=== PATIENT | female | born 1985 | race Caucasian/White ===

== ENCOUNTER 2018-04-29 17:24 | Emergency (ER) | payer BC, OTHER ==
[2018-04-29] MEDS ORDERED: HYDROMORPHONE HCL INJ/PF 2 MG/ML AMPULE IM ONE (18:05)
[2018-04-29] MEDS ORDERED: ONDANSETRON 4 MG TAB.RAPDIS PO ONE ×2 (18:05→20:05)
--- NOTE | 2018-04-29 18:06 | ER Document Report ---
ED Hand/Wrist Injury - General Mode of Arrival: Ambulatory Information source: Patient TRAVEL OUTSIDE OF THE [place] IN LAST 30 DAYS: No <RANDI RHOADES - Last Filed: 04/29/18 19:22> <LALY ELLISON - Last Filed: 04/30/18 00:47> - General Chief Complaint: Finger Injury Stated Complaint: DOG BITE Time Seen by Provider: 04/29/18 17:56 Notes: Patient is a 32 year old female presenting to the emergency department complaining of a finger laceration onset prior to arrival. Patient states her 2 pitbulls were fighting and when she tried to seperate them, one bit her right 4th digit. She states her dogs are up to date on their vaccines. She also states she has received her tetanus shot. (RANDI RHOADES) - Related Data Allergies/Adverse Reactions: azithromycin Allergy (Verified 04/29/18 17:40) acetaminophen [From Percocet] Adverse Reaction (Verified 04/29/18 17:40) oxycodone [From Percocet] Adverse Reaction (Verified 04/29/18 17:40) Past Medical History - Social History Smoking Status: Never Smoker Chew tobacco use (# tins/day): No Frequency of alcohol use: Social Drug Abuse: None Family History: Reviewed & Not Pertinent Patient has suicidal ideation: No Patient has homicidal ideation: No Past Surgical History: Reports: Hx Orthopedic Surgery <RANDI RHOADES - Last Filed: 04/29/18 19:22> - Medical History Notes: Reports multiple autoimmune diseases including Vitiligo, Hashimotos and Lupus. (RANDI RHOADES) Review of Systems - Review of Systems Constitutional: No symptoms reported EENT: No symptoms reported Cardiovascular: No symptoms reported Respiratory: No symptoms reported Gastrointestinal: No symptoms reported Genitourinary: No symptoms reported Female Genitourinary: No symptoms reported Musculoskeletal: See HPI Skin: See HPI Hematologic/Lymphatic: No symptoms reported Neurological/Psychological: No symptoms reported -: Yes All other systems reviewed and negative <RANDI RHOADES - Last Filed: 04/29/18 19:22> Physical Exam <RANDI RHOADES - Last Filed: 04/29/18 19:22> - Vital signs Vitals: Temp Pulse Resp BP Pulse Ox 97.6 F 72 16 122/74 99 04/29/18 17:31 04/29/18 17:31 04/29/18 17:31 04/29/18 17:31 04/29/18 17:31 - Notes Notes: GENERAL: Alert, interacts well. No acute distress. HEAD: Normocephalic, atraumatic. EYES: Pupils equal, round, and reactive to light. Extraocular movements intact. ENT: Oral mucosa moist, tongue midline. NECK: Full range of motion. Supple. Trachea midline. LUNGS: No respiratory distress. EXTREMITIES: Moves all 4 extremities spontaneously. Traumatic laceration to the medial aspect of the 4th digit of the right hand, through DIP joint, skin is still attached laterally. Tip of 4th digit is warm, sensation are decreased. Unable to flex tip of 4th digit.. NEUROLOGICAL: Alert and oriented x3. Normal speech. PSYCH: Normal affect, normal mood. SKIN: Warm, dry. (RANDI RHOADES) Course <LALY ELLISON - Last Filed: 04/30/18 00:47> - Re-evaluation Re-evalutation: 04/29/18 22:00 Finger x-ray shows comminuted minimally displaced intra-articular fracture of the base of the distal phalanx of the fourth digit of the right hand, possible nondisplaced fracture of the distal tuft of the fourth digit, asymmetric widening of the distal interphalangeal joint of the fourth digit, soft tissue defect overlying the ulnar aspect of the distal interphalangeal joint of the fourth digit. Surprisingly the patient has sensation that is intact, relatively normal capillary refill, only mildly decreased at approximately 3 seconds, I am able to visualize the entirety of the DIP joint, there is a small bony chip noted on the ulnar aspect of the wound. Patient is unable to flex or extend at the distal phalanx of the fourth digit. Discussed the case with Dr. Novak, agrees that if there is still evidence of some perfusion to the area that I should irrigate to the wound, treat with Augmentin and loosely approximate and placed in a finger splint. He is asked to see the patient Tuesday morning at 9 AM in his office. He will work her into the schedule during the day. Patient is aware that she is at high risk for infection since this is a dog bite but if we do not approximated she will lose her finger. Patient is also aware given the severity of the injury that she is still likely to lose the distal tip of her finger. Patient will return i mmediately for fever, swelling, redness or any other signs of infection. Area was irrigated with 1 L of normal saline after digital block using bupivacaine and lidocaine, cleansed with Shur-Clens and irrigated more. Approximated using 5-0 Ethilon. Placed in a finger splint. Patient's tetanus vaccine is up-to-date. (LALY ELLISON) - Vital Signs Vital signs: Temp Pulse Resp BP Pulse Ox 97.5 F 70 17 120/83 99 04/29/18 22:17 04/29/18 22:17 04/29/18 22:17 04/29/18 22:17 04/29/18 22:17 Procedures - Immobilization right 4th finger Pre-Proc Neuro Vasc Exam: Abnormal - decreased sensation to the tip of the finger. Immobilizer type: Finger splint (Static) Performed by: PCT Post-Proc Neuro Vasc Exam: Abnormal, Unchanged from pre-exam Alignment checked and good: Yes - Laceration/Wound Repair right 4th finger Wound length (cm): 2 Wound's Depth, Shape: Into muscle, Nail-avulsed, Contused tissue, Other - into joint Laceration pre-procedure: Sterile PPE donned, Sterile drapes applied, Shur-Clens applied Anesthetic type: Other - 50-50 mixture 1% lidocaine and 0.5% bupivicaine Volume Anesthetic (mLs): 3 Wound explored: Contaminated, Foreign body removed - dog hair removed Irrigated w/ Saline (mLs): 1,000 Wound Debrided: Minimal Wound Repaired With: Sutures Suture Size/Type: 5:0, Ethilon Number of Sutures: 5 Layer Closure?: No Post-procedure wound care: Sterile dressing applied, Splint applied Post-procedure NV exam normal: No - still numb Complications: No <LALY ELLISON - Last Filed: 04/30/18 00:47> - Laceration/Wound Repair right 4th finger Notes: 04/29/18 22:10 No buried sutures due to risk of infection, did not attempt to repair the partially torn tendon on the radial aspect of the wound, loosely approximated to cover the tendon but still allow drainage from potential infection. (LALY ELLISON) Discharge <RANDI RHOADES - Last Filed: 04/29/18 19:22> <LALY ELLISON - Last Filed: 04/30/18 00:47> - Discharge Clinical Impression: Open fracture dislocation of distal interphalangeal joint Dog bite of finger Qualifiers: Encounter type: initial encounter Qualified Code(s): S61.259A - Open bite of unspecified finger without damage to nail, initial encounter Phalanx, distal fracture of finger Qualifiers: Encounter type: initial encounter Finger: ring finger Fracture type: open Fracture alignment: nondisplaced Laterality: right Qualified Code(s): S62.664B - Nondisplaced fracture of distal phalanx of right ring finger, initial encounter for open fracture Condition: Stable Disposition: HOME, SELF-CARE Additional Instructions: Clean gently with soap and water once a day, reapply antibiotic ointment and nonstick gauze and then replace the splint. Take your Augmentin twice a day as directed until it is gone. Please go to Dr. Novak's office at 9 AM on Tuesday Please return to the emergency department for any new or concerning symptoms particularly redness, swelling, increasing pain or significant drainage that is not simply blood. Prescriptions: Hydrocodone/Acetaminophen [Berry 5-325 mg Tablet] 1 - 2 tab PO Q4HP PRN #15 tablet PRN Reason: Amox Tr/Potassium Clavulanate [Augmentin 875-125 Tablet] 1 tab PO BID 10 Days tablet Ondansetron [Zofran Odt 4 mg Tablet] 1 - 2 tab PO Q4H PRN #15 tab.rapdis PRN Reason: For Nausea/Vomiting Referrals: AVE NOVAK DO [ACTIVE STAFF] - 05/01/18 9:00 am Scribe Attestation: 04/30/18 00:47 I personally performed the services described in the documentation, reviewed and edited the documentation which was dictated to the scribe in my presence, and it accurately records my words and actions. (LALY ELLSION) Scribe Documentation - Scribe Written by Scribe:: Alma Cheung, 04/29/2018 19:10 acting as scribe for :: Kevin <RANDI RHOADES - Last Filed: 04/29/18 19:22>
--- NOTE | 2018-04-29 18:59 | RADIOLOGY REPORT (SQ) ---
EXAM DESCRIPTION: FINGER RIGHT COMPLETED DATE/TIME: 04/29/2018 6:48 pm REASON FOR STUDY: right 2nd finger partially severed at DIP joint COMPARISON: None. NUMBER OF VIEWS: Three views. TECHNIQUE: AP, lateral, and oblique images acquired of the right fourth finger. LIMITATIONS: None. FINDINGS: MINERALIZATION: Normal. BONES: Comminuted intra-articular fracture of the base of the distal phalanx of the 4th digit, minima lly displaced. Possible additional nondisplaced fracture of the tuft of the distal phalanx of the 4t h digit along the ulnar aspect. Asymmetric widening of the ulnar aspect of the distal interphalangea l joint of the 4th digit. No additional fracture. Alignment is otherwise normal. SOFT TISSUES: Soft tissue defect overlying the ulnar aspect of the distal interphalangeal joint of th e 4th digit. No radiopaque foreign body. OTHER: No other significant finding. IMPRESSION: 1. Comminuted, minimally displaced intra-articular fracture of the base of the distal phalanx of the 4th digit. 2. Possible nondisplaced fracture of the distal tuft of the 4th digit. 3. Asymmetric widening of the distal interphalangeal joint of the 4th digit. 4. Soft tissue defect overlying the ulnar aspect of the distal interphalangeal joint of the 4th digit . COMMENT: SITE OF TRAUMA/COMPLAINT MARKED/STAMP COMPLETED: NOT APPLICABLE. TECHNICAL DOCUMENTATION: JOB ID: [id number] [employer]- All Rights Reserved Reading location - IP/workstation name: [email or web address]
[2018-04-29] MEDS ORDERED: LIDOCAINE 1% INJ-PF (10 MG/ML) 30 ML SDV INJ ONE (20:06)
[2018-04-29] MEDS ORDERED: BUPIVACAINE HCL 0.5 % INJ/PF 30 ML SDV INJ ONE (20:43)
[2018-04-29] MEDS ORDERED: AMOXICILLIN TR/POT CLAVULANATE 500-125 MG TAB PO ONE (21:59)
[2018-04-29] MEDS ORDERED: HYDROCODONE/ACETAMINOPHEN 5-325 MG (6 TAB/ER DISP) PO PRN (22:07)
[2018-04-29] MEDS ORDERED: ONDANSETRON ODT 4 MG TAB (6 TAB/ER DISP) PO PRN (22:07)
[2018-04-29 22:45] VITALS: BP 120/83
== END 2018-04-29 22:17 | disposition home or self-care (01) ==
LOC: ER 17:24
DX: S62.634B Displaced fracture of distal phalanx of right ring finger, initial encounter for open fracture (principal); S61.214A Laceration without foreign body of right ring finger without damage to nail, initial encounter; W54.0XXA Bitten by dog, initial encounter; E06.3 Autoimmune thyroiditis; Z88.3 Allergy status to other anti-infective agents; Z88.6 Allergy status to analgesic agent
CPT/HCPCS: 99283; 73140; 12001; J3490 ×2; S0119; J1170

== ENCOUNTER 2018-05-01 14:10 | Inpatient (IN) | payer OTHER ==
[2018-05-01] MEDS ORDERED: AMPICILLIN SOD/SULBACTAM 3 GM VIAL IV ONE (14:40)
--- NOTE | 2018-05-01 14:46 | ER Document Report ---
ED Medical Screen (RME) - General Chief Complaint: Finger Injury Stated Complaint: FINGER INJURY/REVISIT Time Seen by Provider: 05/01/18 14:37 Notes: 32-year-old female patient seen here 2 days ago with a dog bite to the finger. There was tendon injury. She was seen at the orthopedic/hand surgeon's office today and was to be a direct admit but there are no beds so she is sent to the emergency room to get her IV antibiotic started as soon as possible. I have greeted and performed a rapid initial assessment of this patient. A comprehensive ED assessment and evaluation of the patient, analysis of test results and completion of the medical decision making process will be conducted by additional ED providers. TRAVEL OUTSIDE OF THE [place] IN LAST 30 DAYS: No - Related Data Allergies/Adverse Reactions: azithromycin Allergy (Verified 05/01/18 14:17) acetaminophen [From Percocet] Adverse Reaction (Verified 05/01/18 14:17) oxycodone [From Percocet] Adverse Reaction (Verified 05/01/18 14:17) Past Medical History - Social History Chew tobacco use (# tins/day): No Frequency of alcohol use: Occasional Drug Abuse: None Renal/ Medical History: Denies: Hx Peritoneal Dialysis Past Surgical History: Reports: Hx Orthopedic Surgery Physical Exam - Vital signs Vitals: Temp Pulse Resp BP Pulse Ox 98.2 F 64 16 117/68 100 05/01/18 14:24 05/01/18 14:24 05/01/18 14:24 05/01/18 14:24 05/01/18 14:24 Course - Vital Signs Vital signs: Temp Pulse Resp BP Pulse Ox 98.2 F 64 16 117/68 100 05/01/18 14:24 05/01/18 14:24 05/01/18 14:24 05/01/18 14:24 05/01/18 14:24
--- NOTE | 2018-05-01 15:52 | ER Document Report ---
ED General - General Chief Complaint: Finger Injury Stated Complaint: FINGER INJURY/REVISIT Time Seen by Provider: 05/01/18 14:37 TRAVEL OUTSIDE OF THE [place] IN LAST 30 DAYS: No - HPI Notes: Patient is a 32-year-old female no significant past medical history who presents to the emergency department per the direction of orthopedics, Dr. Novak, for direct admission. Patient had a dog bite a few days ago to the right ring finger that was loosely repaired. She came to the emergency department as there are no beds for admission and for her to start her IV antibiotics. Orthopedics did send written orders for her. She is able to eat and drink until midnight and then she is to remain n.p.o. Patient has no other concerns or complaints. She has been eating and drinking without difficulty. She is urinating normally and having normal bowel movements. Denies any headache, fever, neck pain, URI, sore throat, chest pain, palpitations, syncope, cough, shortness of breath, wheeze, dyspnea, abdominal pain, nausea/vomiting/diarrhea, urinary retention, dysuria, hematuria, or rash. - Related Data Allergies/Adverse Reactions: azithromycin Allergy (Verified 05/01/18 14:17) oxycodone [From Percocet] Adverse Reaction (Verified 05/01/18 14:17) Past Medical History - Social History Smoking Status: Never Smoker Chew tobacco use (# tins/day): No Frequency of alcohol use: Occasional Drug Abuse: None Family History: Reviewed & Not Pertinent Patient has suicidal ideation: No Patient has homicidal ideation: No Renal/ Medical History: Denies: Hx Peritoneal Dialysis Past Surgical History: Reports: Hx Orthopedic Surgery Review of Systems - Review of Systems -: Yes All other systems reviewed and negative Physical Exam - Vital signs Vitals: Temp Pulse Resp BP Pulse Ox 98.2 F 64 16 117/68 100 05/01/18 14:24 05/01/18 14:24 05/01/18 14:24 05/01/18 14:24 05/01/18 14:24 - Notes Notes: PHYSICAL EXAMINATION: GENERAL: Well-appearing, well-nourished and in no acute distress. HEAD: Atraumatic, normocephalic. EYES: Pupils equal round and reactive to light, extraocular movements intact, s clera anicteric, conjunctiva are normal. ENT: Nares patent and without discharge. oropharynx clear without exudates. No tonsilar hypertrophy or erythema. Moist mucous membranes. NECK: Normal range of motion, supple without lymphadenopathy LUNGS: Breath sounds clear to auscultation bilaterally and equal. No wheezes rales or rhonchi. HEART: Regular rate and rhythm without murmurs, rubs, gallops. Musculoskeletal: Rt 4th digit: wound dressing in place, performed by Orthopedics prior to arrival (I will leave as is). Dec sensation distally. + tenderness and erythema. Extremities: No cyanosis, clubbing, or edema b/l. Peripheral pulses 2+. Capillary refill less than 3 seconds. NEUROLOGICAL: Cranial nerves grossly intact. Normal speech, normal gait. PSYCH: Normal mood, normal affect. SKIN: Warm, Dry, normal turgor, no rashes or lesions noted. Course - Re-evaluation Re-evalutation: 05/01/18 15:56 Patient is an afebrile, well-hydrated, 32-year-old female who presents to the emergency department for a direct admission per orthopedics for finger injury status post dog bite requiring IV antibiotics and possible surgery tomorrow. Vitals are acceptable without significant tachycardia, tachypnea, or hypoxia. PE is otherwise unremarkable. Patient is nontoxic-appearing and is tolerating p.o. without difficulty. Orthopedics already has standing orders in place. I did call and speak with Dr. Novak to confirm. No further labs or imaging warranted at this time. Patient is in agreement with plan. - Vital Signs Vital signs: Temp Pulse Resp BP Pulse Ox 98.2 F 64 16 117/68 100 05/01/18 14:24 05/01/18 14:24 05/01/18 14:24 05/01/18 14:24 05/01/18 14:24 Discharge - Discharge Clinical Impression: Dog bite of finger Qualifiers: Encounter type: subsequent encounter Qualified Code(s): S61.259D - Open bite of unspecified finger without damage to nail, subsequent encounter Condition: Stable Disposition: ADMITTED INPATIENT Admitting Provider: Dr. Novak, Orthopedics Unit Admitted: Surgical Floor - For Orthopedics
[2018-05-01] MEDS: ONDANSETRON HCL INJ/PF 4 MG/2 ML SDV IV PRN (19:38)
[2018-05-01] MEDS: HYDROCODONE/ACETAMINOPHEN 5-325 MG TABLET PO PRN (19:41)
[2018-05-01] MEDS: RINGERS SOLUTION,LACTATED 1,000 ML IV PRN (19:47)
[2018-05-01] MEDS: AMPICILLIN SODIUM/SULBACTAM NA 3 GM in NORMAL SALINE 100 ML IV SCH (21:07)
[2018-05-02] MEDS: AMPICILLIN SODIUM/SULBACTAM NA 3 GM in NORMAL SALINE 100 ML IV SCH ×4 (02:16→22:26)
[2018-05-02] MEDS: HYDROCODONE/ACETAMINOPHEN 5-325 MG TABLET PO PRN ×2 (02:21→13:41)
[2018-05-02] MEDS: ONDANSETRON HCL INJ/PF 4 MG/2 ML SDV IV PRN ×2 (02:21→13:41)
--- NOTE | 2018-05-02 09:07 | PDOC H&P ---
History of Present Illness Admission Date/PCP: 05/01/18 16:00 Patient complains of: Dog bite History of Present Illness: SHAWNA DUTTA is a 32 year old female who sustained a dog bite while breaking up a fight to her right ring finger. She was seen in my office where she continued to have redness and swelling. At that point given the redness and swelling concern of possible developing flexor tenosynovitis decision was made to proceed with direct admission and possible irrigation and debridement. Patient states the redness and swelling worsened until she began receiving IV antibiotics and has now slightly improved. Denies fever chills or sweats. Past Surgical History Past Surgical History: Reports: Orthopedic Surgery Social History Smoking Status: Never Smoker Frequency of Alcohol Use: None Hx Recreational Drug Use: No Drugs: None Hx Prescription Drug Abuse: No Family History Family History: Reviewed & Not Pertinent Parental Family History Reviewed: No Children Family History Reviewed: No Sibling(s) Family History Reviewed.: No Medication/Allergy Home Medications: Amox Tr/Potassium Clavulanate [Augmentin 875-125 mg Tablet] 1 tab PO BID 05/01/18 Hydrocodone/Acetaminophen [Breaks 5-325 mg Tablet] 1 tab PO Q4HP PRN 05/01/18 Levothyroxine Sodium [Synthroid 0.075 mg Tablet] 0.075 mg PO Q6AM 05/01/18 Liothyronine Sodium [Cytomel] 5 mcg PO Q6AM 05/01/18 Ondansetron [Zofran Odt 4 mg Tablet] 4 mg PO Q4HP PRN 05/01/18 Allergies/Adverse Reactions: azithromycin Allergy (Verified 05/01/18 14:17) oxycodone [From Percocet] Adverse Reaction (Verified 05/01/18 14:17) Review of Systems Constitutional: ABSENT: chills, fever(s), headache(s), weight gain, weight loss Eyes: ABSENT: visual disturbances Ears: ABSENT: hearing changes Cardiovascular: ABSENT: chest pain, dyspnea on exertion, edema, orthropnea, palpitations Respiratory: ABSENT: cough, hemoptysis Gastrointestinal: ABSENT: abdominal pain, constipation, diarrhea, hematemesis, hematochezia, nausea, vomiting Genitourinary: ABSENT: dysuria, hematuria Musculoskeletal: PRESENT: as per HPI Integumentary: ABSENT: rash, wounds Neurological: ABSENT: abnormal gait, abnormal speech, confusion, dizziness, focal weakness, syncope Psychiatric: ABSENT: anxiety, depression, homidical ideation, suicidal ideation Endocrine: ABSENT: cold intolerance, heat intolerance, menstrual abnormalities, polydipsia, polyuria Hematologic/Lymphatic: ABSENT: easy bleeding, easy bruising, lymphadenopathy Physical Exam Vital Signs: Temp Pulse Resp BP Pulse Ox 97.8 F 71 16 108/70 99 05/02/18 08:00 05/02/18 08:00 05/02/18 08:00 05/02/18 08:00 05/02/18 08:00 Intake & Output 05/01/18 05/02/18 05/03/18 06:59 06:59 06:59 Intake Total 200 Balance 200 Weight 64.3 kg General appearance: PRESENT: no acute distress, well-developed, well-nourished Head exam: PRESENT: atraumatic, normocephalic Eye exam: PRESENT: conjunctiva pink, EOMI, PERRLA. ABSENT: scleral icterus Ear exam: PRESENT: normal external ear exam Mouth exam: PRESENT: moist, tongue midline Neck exam: PRESENT: full ROM. ABSENT: carotid bruit, JVD, lymphadenopathy, thyr omegaly Cardiovascular exam: PRESENT: RRR. ABSENT: diastolic murmur, rubs, systolic murmur Pulses: PRESENT: normal dorsalis pedis pul, +2 pedal pulses bilateral Vascular exam: PRESENT: normal capillary refill GI/Abdominal exam: PRESENT: normal bowel sounds, soft. ABSENT: distended, guarding, mass, organolmegaly, rebound, tenderness Rectal exam: PRESENT: deferred Musculoskeletal exam: PRESENT: other - Right ring finger: Irregular laceration along the DIP joint. Cap refill less than 2 seconds. Hypoesthesia on the distal tip. No purulent drainage. Erythema throughout the ring finger to the level of the MP joint. Tenderness along the flexor sheath and mild tenderness on the A1 kerwin. No erythema proximally. Neurological exam: PRESENT: alert, awake, oriented to person, oriented to place, oriented to time, oriented to situation, CN II-XII grossly intact. ABSENT: motor sensory deficit Psychiatric exam: PRESENT: appropriate affect, normal mood. ABSENT: homicidal ideation, suicidal ideation Skin exam: PRESENT: dry, intact, warm. ABSENT: cyanosis, rash Assessment & Plan - Diagnosis (1) Open fracture dislocation of distal interphalangeal joint Is this a current diagnosis for this admission?: Yes Plan: Patient sustained open fracture after dog bite. She has now developed redness and swelling throughout her digit which is somewhat improved after IV antibiotics however fairly persistent. Given the severity of the injury and infection I have recommended operative intervention which includes irrigation debridement ring finger with surgery as indicated including possible percutaneous transarticular pinning. Risks and benefits have been explained to the patient patient verbalized understanding consented for the procedure.
[2018-05-02] MEDS ORDERED: ONDANSETRON HCL INJ/PF 4 MG/2 ML SDV ONE ×2 (15:01→20:19)
[2018-05-02] MEDS ORDERED: MIDAZOLAM 2 MG/2 ML INJ ONE ×2 (15:01→20:19)
[2018-05-02] MEDS ORDERED: FENTANYL CITRATE INJ/PF 100 MCG/2 ML AMPUL ONE ×2 (15:01→20:19)
[2018-05-02] MEDS ORDERED: PROPOFOL INJ 200 MG/20 ML VIAL IV ONE ×3 (15:02→21:33)
[2018-05-02] MEDS ORDERED: MEPERIDINE HCL/PF INJ 25 MG/1 ML DISP.SYRIN IV PRN (20:49)
[2018-05-02] MEDS ORDERED: ONDANSETRON HCL INJ/PF 4 MG/2 ML SDV IV PRN (20:49)
[2018-05-02] MEDS ORDERED: PROMETHAZINE HCL INJ 25 MG/1 ML VIAL IV PRN ×2 (20:49)
[2018-05-02] MEDS ORDERED: DIPHENHYDRAMINE HCL 50 MG/ML VIAL IV PRN (20:49)
[2018-05-02] MEDS ORDERED: FENTANYL CITRATE INJ/PF 100 MCG/2 ML AMPUL IV PRN ×3 (20:49)
[2018-05-02] MEDS: RINGERS SOLUTION,LACTATED 1,000 ML IV PRN (23:22)
[2018-05-03] MEDS: HYDROCODONE/ACETAMINOPHEN 5-325 MG TABLET PO PRN ×5 (02:18→21:07)
[2018-05-03] MEDS: ONDANSETRON HCL INJ/PF 4 MG/2 ML SDV IV PRN ×3 (02:19→16:06)
[2018-05-03] MEDS: AMPICILLIN SODIUM/SULBACTAM NA 3 GM in NORMAL SALINE 100 ML IV SCH ×4 (03:29→21:11)
--- NOTE | 2018-05-03 08:06 | PDOC PROGRESS REPORT ---
Subjective Progress Note for:: 05/03/18 Reason For Visit: FINGER INJURY 32-year-old white female status post a dog bite to her right ring finger. She was taken to the operating room and underwent an I&D for a flexor Stacie synovitis. Minimal complaints today. Physical Exam Vital Signs: Temp Pulse Resp BP Pulse Ox 36.6 C 88 16 108/60 99 05/03/18 03:29 05/03/18 03:29 05/03/18 03:29 05/03/18 03:29 05/03/18 03:29 Intake & Output 05/02/18 05/03/18 05/04/18 06:59 06:59 06:59 Intake Total 200 2677 Output Total 0 Balance 200 2677 Weight 64.3 kg 66.361 kg General appearance: PRESENT: no acute distress, mild distress Head exam: PRESENT: normocephalic Respiratory exam: PRESENT: unlabored Cardiovascular exam: PRESENT: RRR Vascular exam: PRESENT: normal capillary refill GI/Abdominal exam: PRESENT: soft Rectal exam: PRESENT: deferred Musculoskeletal exam: PRESENT: other - Questionably decreased sensation to the tuft of the right ring finger Neurological exam: PRESENT: alert, awake, oriented to person, oriented to place, oriented to time, oriented to situation. ABSENT: motor sensory deficit Psychiatric exam: PRESENT: appropriate affect, normal mood. ABSENT: homicidal ideation, suicidal ideation Results Status: Imported from PACS Assessment & Plan - Diagnosis (1) Dog bite of finger Qualifiers: Encounter type: subsequent encounter Qualified Code(s): S61.259D - Open bite of unspecified finger without damage to nail, subsequent encounter; W54.0XXD - Bitten by dog, subsequent encounter Is this a current diagnosis for this admission?: Yes Plan: Continued antibiotic administration and observation - Time Time Spent with patient: 15-24 minutes Anticipated discharge: Home with Homehealth Within: Other
--- NOTE | 2018-05-03 08:11 | RADIOLOGY REPORT (SQ) ---
EXAM DESCRIPTION: NO CHG FLUORO; FINGER RIGHT COMPLETED DATE/TIME: 05/02/2018 9:36 pm REASON FOR STUDY: PERC PINNING COMPARISON: Radiographs 04/29/2018. FINDINGS: Fluoro time 7 seconds. Number of images with: 2. Percutaneous pinning across the DIP joint of the ring finger. Please correlate with operative note. TECHNICAL DOCUMENTATION: JOB ID: [id number] Reading location - IP/workstation name: [email or web address] [id number]
--- NOTE | 2018-05-03 08:11 | RADIOLOGY REPORT (SQ) ---
EXAM DESCRIPTION: NO CHG FLUORO; FINGER RIGHT COMPLETED DATE/TIME: 05/02/2018 9:36 pm REASON FOR STUDY: PERC PINNING COMPARISON: Radiographs 04/29/2018. FINDINGS: Fluoro time 7 seconds. Number of images with: 2. Percutaneous pinning across the DIP joint of the ring finger. Please correlate with operative note. TECHNICAL DOCUMENTATION: JOB ID: [id number] Reading location - IP/workstation name: [email or web address] [id number]
[2018-05-04] MEDS: AMPICILLIN SODIUM/SULBACTAM NA 3 GM in NORMAL SALINE 100 ML IV SCH ×2 (03:23→10:21)
[2018-05-04] MEDS: HYDROCODONE/ACETAMINOPHEN 5-325 MG TABLET PO PRN (06:32)
[2018-05-04 13:38] VITALS: BP 113/68
--- NOTE | 2018-05-09 12:05 | PDOC DISCHARGE SUMMARY ---
General - Admit/Disc Date/PCP Admission Date/Primary Care Provider: 05/01/18 16:00 Discharge Date: 05/04/18 - Discharge Diagnosis (1) Open fracture dislocation of distal interphalangeal joint Is this a current diagnosis for this admission?: Yes - Additional Information Discharge Diet: As Tolerated Discharge Activity: No Lifting Over 10 Pounds, No Lifting/Push/Pulling Prescriptions: Hydrocodone/Acetaminophen [[place] 5-325 mg Tablet] 1 tab PO Q4HP PRN #25 tablet PRN Reason: For Pain Amox Tr/Potassium Clavulanate [Augmentin 875-125 mg Tablet] 1 tab PO BID #14 tablet Home Medications: Levothyroxine Sodium [Synthroid 0.075 mg Tablet] 0.075 mg PO Q6AM 05/01/18 Liothyronine Sodium [Cytomel] 5 mcg PO Q6AM 05/01/18 Ondansetron [Zofran Odt 4 mg Tablet] 4 mg PO Q4HP PRN 05/01/18 Amox Tr/Potassium Clavulanate [Augmentin 875-125 mg Tablet] 1 tab PO BID #14 tablet 05/02/18 Hydrocodone/Acetaminophen [[place] 5-325 mg Tablet] 1 tab PO Q4HP PRN #25 tablet 05/02/18 History of Present Illness History of Present Illness: SHAWNA DUTTA is a 32 year old female who sustained a dog bite while breaking up a fight to her right ring finger. She was seen in my office where she continued to have redness and swelling. At that point given the redness and swelling concern of possible developing flexor tenosynovitis decision was made to proceed with direct admission and possible irrigation and debridement. Patient states the redness and swelling worsened until she began receiving IV antibiotics and has now slightly improved. Denies fever chills or sweats. Hospital Course Hospital Course: Patient was admitted to orthopedic service on 05/01/18. On 05/01/18 she underwent irrigation and debridement of the flexor sheath with transarticular pinning of the DIP joint. Patient tolerated procedure well. Throughout her hospital course redness swelling and pain notably improved. She was continued on Unasyn during her hospital stay but given the fact she was seeing improvement on 05/04/18 patient was deemed medically stable for discharge to home on p.o. Augmentin. Physical Exam Vital Signs: Temp Pulse Resp BP Pulse Ox 97.9 F 59 L 18 113/68 100 05/04/18 13:37 05/04/18 13:37 05/04/18 13:37 05/04/18 13:37 05/04/18 13:37 General appearance: PRESENT: no acute distress, well-developed, well-nourished Head exam: PRESENT: atraumatic, normocephalic Eye exam: PRESENT: conjunctiva pink, EOMI, PERRLA. ABSENT: scleral icterus Ear exam: PRESENT: normal external ear exam Mouth exam: PRESENT: moist, tongue midline Neck exam: PRESENT: full ROM. ABSENT: carotid bruit, JVD, lymphadenopathy, thyr omegaly Cardiovascular exam: PRESENT: RRR. ABSENT: diastolic murmur, rubs, systolic murmur Pulses: PRESENT: normal dorsalis pedis pul, +2 pedal pulses bilateral Vascular exam: PRESENT: normal capillary refill GI/Abdominal exam: PRESENT: normal bowel sounds, soft. ABSENT: distended, guarding, mass, organolmegaly, rebound, tenderness Rectal exam: PRESENT: deferred Musculoskeletal exam: PRESENT: other - Right ring finger: Previous erythema and tenderness on the A1 kerwin and flexor sheath notably improved. Cap refill less than 2 seconds. Hypoesthesia on the distal tip. No fusiform swelling or proximal streaking. No lymphadenopathy. Neurological exam: PRESENT: alert, awake, oriented to person, oriented to place, oriented to time, oriented to situation, CN II-XII grossly intact. ABSENT: motor sensory deficit Psychiatric exam: PRESENT: appropriate affect, normal mood. ABSENT: homicidal ideation, suicidal ideation Skin exam: PRESENT: dry, intact, warm. ABSENT: cyanosis, rash Qualifiers - * PATIENT BEING DISCHARGED WITH ANY OF THE FOLLOWING DIAGNOSIS: No Plan Discharge Plan: Patient has seen improvement with IV antibiotics and operative intervention. Patient will be continued on Augmentin twice daily as instructed. She will begin range of motion of her PIP joint. If she notices increased redness swelling pain or temperature greater than 101.5 she should contact her office follow to schedule appointment. She will follow-up with me in 24 hours for recheck.
--- NOTE | 2018-05-15 18:13 | Operative Report ---
Operative Report PREOPERATIVE DIAGNOSIS: Open fracture distal phalanx right ring finger, status post dog bite POSTOPERATIVE DIAGNOSIS: Same plus partial FDP laceration OPERATION: 1. Irrigation debridement tendon sheath right ring finger. 2. Transarticular pinning DIP joint/distal phalanx fracture. 3. Partial repair FDP tendon SURGEON: A[place] ANESTHESIA: LMAC COMPLICATIONS: None ESTIMATED BLOOD LOSS: Minimal PROCEDURE: Indication for above procedure: 32-year-old female who sustained a significant dog bite to her right ring finger at the DIP joint when she was attempting to break up a fight between her own dogs. Patient was then seen at the emergency room the area was aggressively irrigated and loosely closed and started on antibiotics unfortunately after 48 hours she continued to have redness and swelling and began having drainage and was admitted for IV antibiotics. After 24 hours of IV antibiotics patient failed to see significant improvement and thus decision was made to proceed with operative treatment. Patient explained risk and benefits of the surgical procedure including recurrent infection necessitating amputation, postoperative pain, postoperative stiffness. She has verbalized understanding consented for the above procedure. Procedure In Detail: Patient was seen and evaluated in the preoperative holding area. The RIGHT upper extremity was initialized and marked. Patient receiving scheduled IV Unasyn for bacterial prophylaxis. Patient was taken back to the operative room where transferred to the operative table. Once they were adequately anesthetized a nonsterile tourniquet was placed on the upper extremity. A surgical team debriefing was performed ensuring all instrumentation was available, the surgical procedure was discussed with possible concerns reviewed. A digital block was performed utilizing 10 mL of 1% lidocaine without epinephrine. The upper extremity was prepped with chlorhexidine and alcohol and draped in a sterile fashion. A timeout was done identifying correct patient, procedure and extremity everyone in attendance agree with this and verbalized no concerns. The extremity was the tourniquet was inflated to 250 mmHg. Longitudinal skin incision was made centered over the A1 kerwin of the ring finger. The radial and ulnar neurovascular bundles were identified and retracted from the wound. The A1 kerwin was identified and incised. There is small amount of cloudy fluid no gross purulence appreciated. A second transverse skin incision was made along the PIP joint no fluid was encountered. The sutures along the DIP joint were removed and skin edges debrided. Exploration demonstrated fraying of the FDP tendon. From the proximal wound the FDP tendon did have pulled through the DIP joint with intact flexion. The wounds were copiously irrigated with normal saline. Any nonviable tissue excised. The FDP tendon was reapproximated with [id number] 4-0 Prolene suture. There was evidence of nonviable bone along the ulnar aspect of the DIP joint which was excised. C-arm fluoroscopy was obtained which demonstrated notable instability of the DIP joint thus concern was without adequate fixation there would not be stability of the DIP joint which would cause postop complaint however there is also concern of inserting a pain with possible infection could cause increased risk of infection. After weighing options I felt stability to the DIP joint was worth the risk of recurrent infection which was discussed preoperatively. Under C-arm fluoroscopy a 0.045 K wire was then placed transarticular the to maintain reduction of the fracture. K wire was then cut below the skin. Skin incisions were closed with interrupted 4-0 nylon suture. Tourniquet was then deflated there was evidence of normal skin turgor and adequate perfusion with cap refill less than 2 seconds. Wound was dressed Xeroform 4 x 4's and patient was placed in a soft dressing. Sponge counts, instrument counts, needle counts counts were correct. Patient was then awoken from anesthesia. Transferred from the operating room table to the operating room stretcher. There was no intraoperative complications patient tolerated procedure well stable to PACU. Postoperative plan: Patient will continue with IV antibiotics for the next 24 hours. Will discharge home on p.o. antibiotics 05/04/18 if showing improvement.
== END 2018-05-04 13:52 | disposition home or self-care (01) | DRG 514 ==
LOC: OROUT 14:10 → EH 16:00 → 2N 17:45
PROVIDERS: ADMIT Orthopaedic Surgery; ATTEND Orthopaedic Surgery
PROC: 0LS70ZZ Reposition Right Hand Tendon, Open Approach (ICD-10-PCS; principal; 2018-05-01)
PROC: 0PST04Z Reposition Right Finger Phalanx with Internal Fixation Device, Open Approach (ICD-10-PCS; 2018-05-01)
DX: S62.634B Displaced fracture of distal phalanx of right ring finger, initial encounter for open fracture (principal); W54.0XXA Bitten by dog, initial encounter; Y92.9 Unspecified place or not applicable; Z79.899 Other long term (current) drug therapy; Z88.6 Allergy status to analgesic agent; Z88.3 Allergy status to other anti-infective agents
CPT/HCPCS: 00400; 81025; 96374; 99285; C1713; J0295; J2250; J2405; J2704; J3010; J7120

== ENCOUNTER 2019-01-09 09:31 | Day surgery (SDC) | payer OTHER ==
[2019-01-02 10:24] LABS: ABSOLUTE BASOPHILS # (AUTO) 0.1 10^3/uL (0.0-0.2); ABSOLUTE EOSINOPHILS # (AUTO) 0.1 10^3/uL (0.0-0.6); ABSOLUTE LYMPHOCYTES (AUTO) 2.6 10^3/uL (0.5-4.7); ABSOLUTE MONOCYTES (AUTO) 0.4 10^3/uL (0.1-1.4); ABSOLUTE NEUT (AUTO) 2.2 10^3/uL (1.7-8.2); EOSINOPHILS % (AUTO) 1.7 % (0-6); HEMATOCRIT 38.9 % (36.0-47.0); HEMOGLOBIN 13.2 g/dL (12.0-15.5); LYMPHOCYTES % (AUTO) 48.5 % (13-45); MEAN CORPUSCULAR HEMOGLOBIN 31.3 pg (27.0-33.4); MEAN CORPUSCULAR HGB CONC 33.9 g/dL (32.0-36.0); MEAN CORPUSCULAR VOLUME 93 fl (80-97); MONOCYTES % (AUTO) 7.1 % (3-13); PLATELET COUNT 329 10^3/uL (150-450); RED BLOOD COUNT 4.21 10^6/uL (3.72-5.28); RED CELL DISTRIBUTION WIDTH 12.9 % (11.5-14.0); SEGMENTED NEUTROPHILS % (AUTO) 41.7 % (42-78); TOTAL CELLS COUNTED % (AUTO) 100 %; WHITE BLOOD COUNT 5.3 10^3/uL (4.0-10.5)
[2019-01-02 10:29] LABS: ANION GAP 9 (5-19); BLOOD UREA NITROGEN 16 mg/dL (7-20); CALCIUM 9.3 mg/dL (8.4-10.2); CARBON DIOXIDE 26 mmol/L (22-30); CHLORIDE 104 mmol/L (98-107); GLUCOSE 49 mg/dL (75-110); POTASSIUM 4.4 mmol/L (3.6-5.0)
[~2019-01-09 09:31] MED LIST: CEFAZOLIN SODIUM 2 GM in DEXTROSE 5%-WATER 100 ML IV PRN; DEXAMETHASONE SOD PHOSPHATE INJ 4 MG/1 ML VIAL ONE; FENTANYL CITRATE INJ/PF 100 MCG/2 ML AMPUL ONE; LACTATED RINGERS 1000 ML IV PRN; MIDAZOLAM 2 MG/2 ML INJ ONE; ONDANSETRON HCL INJ/PF 4 MG/2 ML SDV ONE; PROPOFOL INJ 200 MG/20 ML VIAL IV ONE
[2019-01-09] MEDS ORDERED: BUPIVACAINE HCL 0.5 % INJ/PF 30 ML SDV ONE ×2 (10:35→13:08)
[2019-01-09] MEDS ORDERED: EPHEDRINE SULFATE INJ 50 MG/1 ML AMPULE ONE (12:28)
[2019-01-09] MEDS ORDERED: FENTANYL CITRATE INJ/PF 100 MCG/2 ML AMPUL IV PRN ×4 (12:30→14:16)
[2019-01-09] MEDS ORDERED: DIPHENHYDRAMINE HCL 50 MG/ML VIAL IV PRN (12:30)
[2019-01-09] MEDS ORDERED: PROMETHAZINE HCL INJ 25 MG/1 ML VIAL IV PRN ×2 (12:30)
[2019-01-09] MEDS ORDERED: MORPHINE SULFATE 10 MG/ML INJ IV PRN (12:30)
[2019-01-09] MEDS ORDERED: MEPERIDINE HCL/PF INJ 25 MG/1 ML DISP.SYRIN IV PRN (12:30)
[2019-01-09] MEDS ORDERED: ONDANSETRON HCL INJ/PF 4 MG/2 ML SDV IV PRN ×2 (12:30→14:16)
[2019-01-09] MEDS ORDERED: HYDROCODONE/ACETAMINOPHEN 5-325 MG TABLET PO PRN (14:16)
--- NOTE | 2019-01-09 14:17 | Discharge Summary ---
Discharge Summary (SDC) - Discharge Final Diagnosis: Right ring finger flexor tendon insufficiency Date of Surgery: 01/09/19 Discharge Date: 01/09/19 Condition: Good Treatment or Instructions: Schedule Follow Up w/ Dr. Morgan Novak @ [facility] to be seen in 10-14 days or as scheduled [place]: [place]: [place]: Ice and elevate Keep splint clean/dry/intact, do not remove. If your fingers become numb please unwrap the Yoandy wrap but leave the splint in place, if the sensation does not return within 30 minutes please return to the emergency department. May begin finger range of motion attempting to make full fist. Please use ibuprofen (Motrin or Advil) 600-800 mg every 8 hours as needed for pain or fever DO NOT TAKE w/ TORADOL may use once TORADOL complete. You may also use acetaminophen (Tylenol) 1000 mg every 4-6 hours as needed for pain or fever. Please be aware that many medications contain acetaminophen, do not exceed a total of 1000 mg of acetaminophen every 6 hours. If ibuprofen and acetaminophen are not sufficient for your pain you may take the Percocet/Louann. Please be aware that the Percocet/Louann does contain Tylenol. Stool softener of choice when on pain medication. USE OF [id number]-[id number] IBUPROFEN: Ibuprofen (Advil, Nuprin, Medipren, Motrin IB) is a medication for fever and pain control. In addition, it has anti- inflammatory effects which may be beneficial, especially in the treatment of injuries. It's best to take ibuprofen with food. Persons with ulcer disease or allergy to aspirin should notify their physician of this before taking ibuprofen. Ibuprofen can be given every four to six hours, for a total of four doses daily. Age Pain or fever dose Antiinflammatory dose 6-8 yr 200 mg (1 tab) 200 mg (1 tab) 9-11 yr 200 mg (1 tab) 200-400 mg (1-2 tab) 11-14 yr 200-400 mg (1-2 tab) 400 mg (2 tab) 15-adult 400 mg (2 tab) 600 mg (3 tab) ORAL NARCOTIC MEDICATION: You have been given a prescription for pain control. This medication is a narcotic. It's best taken with food, as nausea can result if taken on an empty stomach. Don't operate machinery or drive within six hours of taking this medication. Do not combine this medicine with alcohol, or with any medication which can cause sedation (such as cold tablets or sleeping pills) unless you get permission from the physician. Narcotics tend to cause constipation. If possible, drink plenty of fluids and eat a diet high in fiber and fruits. Please be aware that prescription narcotics also have the potential for abuse. People become addicted to these medications because of the general sense of wellbeing that they induce. This feeling along with a significant reduction in tension, anxiety, and aggression provides a stimulating seductive quality to these drugs. Once your pain is under control, we encourage you to discard your unused narcotics. Prescriptions: Methylprednisolone [Medrol Dosepack (4 mg/Tab) 21 Tab/Dosepak] 4 mg PO ASDIR PRN #21 tab.ds.pk PRN Reason: Hydrocodone/Acetaminophen [Louann 7.5-325 mg Tablet] 1 tab PO Q6 PRN #25 tablet PRN Reason: Ondansetron HCl [Zofran 4 mg Tablet] 1 tab PO Q6 PRN #10 tablet PRN Reason: Discharge Diet: As Tolerated Discharge Activity: No Lifting Over 10 Pounds, No Lifting/Push/Pulling Report the Following to Your Physician Immediately: Fever over 101 Degrees, Unusual Bleeding, Redness, Swelling, Warmth, Increased Soreness
--- NOTE | 2019-01-09 14:26 | Operative Report ---
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 Right ring finger secondary flexor tendon reconstruction utilizing fourth toe EDL tendon autograft. 2. Right open carpal tunnel release SURGEON: A[place] ANESTHESIA: [place] COMPLICATIONS: None ESTIMATED BLOOD LOSS: Minimal PROCEDURE: Indication for above procedure: 33-year-old female who sustained a dog bite wound to the right ring finger underwent operative irrigation debridement she originally had seen improvement then developed flexor tendon insufficiency. Then underwent secondary procedure to proceed with placement of Bar hailee and tenolysis. Patient's passive range of motion and soft tissues matured and thus decision was made to proceed with operative intervention. Risk and benefits were explained patient verbalized understanding consented for surgical procedure. Procedure In Detail: Patient was seen and evaluated in the preoperative holding area. The RIGHT upper extremity was initialized and marked. Patient received 2g of Ancef IV for bacterial prophylaxis. Patient was taken back to the operative room where transferred to the operative table and placed under general anesthesia. Once they were adequately anesthetized a nonsterile tourniquet was placed on the upper extremity. A surgical team debriefing was performed ensuring all instrumentation was available, the surgical procedure was discussed with possible concerns reviewed. The upper extremity was prepped with chlorhexidine and alcohol and draped in a sterile fashion. A timeout was done identifying correct patient, procedure and extremity everyone in attendance agree with this and verbalized no concerns. The extremity was exsanguinated the tourniquet was inflated to 250 mmHg. Previous skin incision was utilized along the volar aspect of the DIP joint. Radial and ulnar neurovascular bundles were protected. Bar's hailee was identified distally. Then the proximal incision was utilized. Tenolysis was performed to the FDP and FDS tendons. Median nerve was identified and protected. The proximal aspect of the Bar's hailee was identified. FDP tendons to the middle and small finger were isolated to allow for later transfer. Attention then turned to harvesting the extensor tendon graft. Tourniquet was deflated any peripheral bleeding was controlled with bipolar cautery. Wound was copiously irrigated with normal saline and covered with saline soaked sponge Transverse skin incision was utilized along the dorsum of the fourth MTP joint blunt dissection was performed and the fourth EDL tendon was isolated. Tendon stripper was then passed a proximal direction second incision was made over the extensor retinaculum which was released. Third incision was then made approximately a tendon stripper placed over the tendon and tendon isolated once again. Finally fourth incision was made along the mid calf at the musculotendinous tension of the EDL and the fourth EDL tendon was then completely harvested. On the back table and the extra muscle was carefully debrided. Wound was then copiously irrigated with normal saline. Skin was closed with subcuticular 4-0 Monocryl reinforced with Steri-Strips and a sterile dressing placed. 20 cc of 0.5% bupivacaine without epinephrine was injected for postoperative pain. Tourniquet was deflated patient had normal peripheral perfusion. With the use of C-arm fluoroscopy the appropriate insertion point of the Arthrex Virgen anchor was confirmed and Virgen anchor was secured into position. Tendon was then shuttled secured to the proximal aspect of the Bar hailee and shuttled from proximal to distal. A modified Gross stitch was placed through the tendon graft with a 3-0 PDS suture this was then passed through the distal phalanx and nail plate distal to the germinal matrix and secured to the nail plate. A running Krakw stitch was placed from proximal to distal into the tendon graft from the Virgen anchor. Wound was copiously irrigated with normal saline. Skin incision was closed interrupted 4-0 nylon suture. Attention then turned to the proximal aspect of the graft. The FDP to the small and middle finger were once again isolated and the tendon graft was placed to the FDP tendons with a Pulvertaft weave and secured with 3-0 FiberWire suture tenodesis was then performed which demonstrated adequate flexion extension of the DIP and PIP joints without increased tension. Proximal fixation was then completed with 3 additional Pulvertaft weave secured with 3-0 Ethibond suture. Final C-arm fluoroscopy was obtained confirming appropriate placement of the anchor. Wound was copiously irrigated with normal saline. Longitudinal skin incision was made in line with the radial border of the ring finger blunt dissection was performed. Palmar fascia was incised in transverse carpal ligament was isolated. Transverse carpal ligament was released to the adipose protecting the superficial palmar arch and the proximal aspect of the volar antebrachial fascia was incised to the previous skin incision. Through both incisions I was able to ensure adequate release of the median nerve. Wounds were copiously irrigated with normal saline and a peripheral veins were coagulated with bipolar cautery. Tourniquet was deflated. Patient had normal peripheral perfusion and skin turgor throughout all digits. Skin was closed with subcutaneous 4-0 Monocryl and horizontal mattress 4-0 nylon suture. 20 cc of 0.5% bupivacaine without epinephrine was injected for postoperative pain control. Patient was placed in a dorsal blocking splint with the wrist at 20 degrees of flexion MP joints at 60 degrees of flexion IP joints at neutral. Sponge counts, instrument counts, needle counts were correct. Patient was then awoken from anesthesia. Transferred from the operating room table to the operating room stretcher. There was no intraoperative complications patient tolerated procedure well stable to PACU. Postoperative plan: Patient will follow in the office in 2 weeks at which point we will proceed with suture removal. Transosseous suture will remain intact for 8 weeks. Patient will begin occupational therapy within 5-7 days.
[2019-01-09] MEDS ORDERED: ONDANSETRON HCL INJ/PF 4 MG/2 ML SDV ONE (14:58)
[2019-01-09] MEDS ORDERED: HYDROCODONE/ACETAMINOPHEN 5-325 MG TABLET ONE (15:08)
--- NOTE | 2019-01-09 16:54 | RADIOLOGY REPORT (SQ) ---
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 FLUOROSCOPY TIME: 9 seconds. 3 images saved to PACS. TECHNIQUE: Intra-operative images acquired during surgical procedure to evaluate progress. NUMBER OF IMAGES: 3 images. LIMITATIONS: None. FINDINGS: Images of the finger acquired during the procedure. IMPRESSION: IMAGE(S) OBTAINED DURING PROCEDURE. COMMENT: Quality ID [id number]: Final reports for procedures using fluoroscopy that document radiation exp osure indices, or exposure time and number of fluorographic images (if radiation exposure indices are not available) Please consult full operative report of the attending physician for description of the procedure. TECHNICAL DOCUMENTATION: JOB ID: [id number] [employer]- All Rights Reserved Reading location - IP/workstation name: [email or web address]
--- NOTE | 2019-01-09 16:54 | RADIOLOGY REPORT (SQ) ---
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 FLUOROSCOPY TIME: 9 seconds. 3 images saved to PACS. TECHNIQUE: Intra-operative images acquired during surgical procedure to evaluate progress. NUMBER OF IMAGES: 3 images. LIMITATIONS: None. FINDINGS: Images of the finger acquired during the procedure. IMPRESSION: IMAGE(S) OBTAINED DURING PROCEDURE. COMMENT: Quality ID [id number]: Final reports for procedures using fluoroscopy that document radiation exp osure indices, or exposure time and number of fluorographic images (if radiation exposure indices are not available) Please consult full operative report of the attending physician for description of the procedure. TECHNICAL DOCUMENTATION: JOB ID: [id number] [employer] All Rights Reserved Reading location - IP/workstation name: [email or web address]
[2019-01-09 17:16] VITALS: BP 121/78
== END 2019-01-09 16:25 | disposition home or self-care (01) ==
LOC: OROUT 09:31
PROVIDERS: ATTEND Orthopaedic Surgery
DX: M24.541 Contracture, right hand (principal); G56.01 Carpal tunnel syndrome, right upper limb; E03.9 Hypothyroidism, unspecified; Z79.899 Other long term (current) drug therapy
CPT/HCPCS: 64721; 36415; 85025; 81025; 80048; 73140; 01810; 26502; J2250; J3490 ×2; J0690; J1100; J3010; J2405; J7060; J2704

== ENCOUNTER 2019-12-26 10:21 | Emergency (ER) | payer OTHER ==
[2019-12-26] MEDS ORDERED: NORMAL SALINE 1000 ML 1,000 ML IV ONE (10:56)
[2019-12-26 11:22] LABS: ABSOLUTE LYMPHOCYTES (AUTO) 0.8 10^3/uL (0.5-4.7); ABSOLUTE MONOCYTES (AUTO) 0.5 10^3/uL (0.1-1.4); ABSOLUTE NEUT (AUTO) 9.4 10^3/uL (1.7-8.2); BASOPHILS % (AUTO) 0.4 % (0-2); HEMATOCRIT 38.1 % (36.0-47.0); LYMPHOCYTES % (AUTO) 7.5 % (13-45); MEAN CORPUSCULAR HEMOGLOBIN 31.3 pg (27.0-33.4); MEAN CORPUSCULAR HGB CONC 34.1 g/dL (32.0-36.0); MEAN CORPUSCULAR VOLUME 92 fl (80-97); MONOCYTES % (AUTO) 4.9 % (3-13); PLATELET COUNT 307 10^3/uL (150-450); RED BLOOD COUNT 4.15 10^6/uL (3.72-5.28); RED CELL DISTRIBUTION WIDTH 12.9 % (11.5-14.0); SEGMENTED NEUTROPHILS % (AUTO) 87.2 % (42-78); TOTAL CELLS COUNTED % (AUTO) 100 %; WHITE BLOOD COUNT 10.8 10^3/uL (4.0-10.5)
[2019-12-26 11:38] LABS: ALBUMIN 4.7 g/dL (3.5-5.0); ALKALINE PHOSPHATASE 72 U/L (38-126); ANION GAP 10 (5-19); ASPARTATE AMINO TRANSFERASE 22 U/L (14-36); BILIRUBIN,DIRECT 0.2 mg/dL (0.0-0.4); BILIRUBIN,TOTAL 0.7 mg/dL (0.2-1.3); BLOOD UREA NITROGEN 12 mg/dL (7-20); CALCIUM 9.5 mg/dL (8.4-10.2); CARBON DIOXIDE 26 mmol/L (22-30); CHLORIDE 101 mmol/L (98-107); GLUCOSE 109 mg/dL (75-110); POTASSIUM 4.3 mmol/L (3.6-5.0); TOTAL PROTEIN 7.7 g/dL (6.3-8.2)
[2019-12-26 12:10] LABS: APPEARANCE,URINE CLEAR; BILIRUBIN,URINE NEGATIVE (NEGATIVE); COLOR,URINE COLORLESS; GLUCOSE, URINE NEGATIVE (NEGATIVE); KETONES,URINE NEGATIVE (NEGATIVE); PROTEIN,URINE NEGATIVE (NEGATIVE); URINE SPECIFIC GRAVITY 1.004; UROBILINOGEN,URINE NEGATIVE mg/dL (<2.0)
--- NOTE | 2019-12-26 12:47 | RADIOLOGY REPORT (SQ) ---
EXAM DESCRIPTION: CT ABD/PELVIS WITH IV ONLY IMAGES COMPLETED DATE/TIME: 12/26/2019 12:32 pm REASON FOR STUDY: llq pain COMPARISON: None. TECHNIQUE: CT scan of the abdomen and pelvis performed using helical scanning technique with dynamic intravenous contrast injection. No oral contrast. Images reviewed with lung, soft tissue, and bone windows. Reconstructed coronal and sagittal MPR images reviewed. Delayed images for evaluation of the urinary system also acquired. All images stored on PACS. All CT scanners at this facility use dose modulation, iterative reconstruction, and/or weight based d osing when appropriate to reduce radiation dose to as low as reasonably achievable (ALARA). [facility]: Dose Right [facility]: CareDose [facility]: Dose Right [facility]: Teradose 4D [facility]: 50 Cubes CONTRAST TYPE AND DOSE: Contrast/concentration: Isovue 350.00 mmol/ml; Total Contrast Delivered: 83. 0 ml; Total Saline Delivered: 56.2 ml RENAL FUNCTION: None required. The patient is less than 50 years old. RADIATION DOSE: CT Rad equipment meets quality standard of care and radiation dose reduction techniq ues were employed. CTDIvol: 8.2 - 10.8 mGy. DLP: 959 mGy-cm. LIMITATIONS: None. FINDINGS: LOWER CHEST: No acute findings. LIVER: The morphology of the liver is noncirrhotic. The morphology of the liver is noncirrhotic. Th ere is no hepatic mass. SPLEEN: No splenomegaly or splenic mass. PANCREAS: No acute gross abnormality of the pancreas. GALLBLADDER: No abnormality that is apparent on CT. ADRENAL GLANDS: No mass or asymmetry. RIGHT KIDNEY AND URETER: No solid mass, hydronephrosis, nephrolithiasis, hydroureter or ureterolithia sis. LEFT KIDNEY AND URETER: No solid mass, hydronephrosis, nephrolithiasis, hydroureter or ureterolithias is. AORTA AND VESSELS: No aneurysm or dissection of the abdominal aorta. The abdominopelvic vasculature is patent. RETROPERITONEUM: No retroperitoneal adenopathy, hemorrhage or mass. BOWEL AND PERITONEAL CAVITY: No bowel obstruction, bowel wall thickening or pericolonic/ perienteric inflammation. No mesenteric adenopathy, free intraperitoneal fluid or mesenteric/omental inflammatio n. APPENDIX: Unable to identify the appendix. PELVIS: No abnormality of the uterus or adnexa that is apparent on CT. The urinary bladder is normal . ABDOMINAL WALL: No mass or hernia. BONES: No acute findings. OTHER: No other finding. IMPRESSION: No acute intra-abdominal abnormality. TECHNICAL DOCUMENTATION: JOB ID: [id number] Quality ID # [id number]: Final reports with documentation of one or more dose reduction techniques (e.g., Au tomated exposure control, adjustment of the mA and/or kV according to patient size, use of iterative reconstruction technique) 2010 [employer]- All Rights Reserved Reading location - IP/workstation name: [email or web address]
--- NOTE | 2019-12-26 13:55 | ER Document Report ---
ED Fever - General Chief Complaint: Abdominal Pain Stated Complaint: ABDOMINAL PAIN/FEVER Time Seen by Provider: 12/26/19 10:39 Mode of Arrival: Ambulatory Information source: Patient TRAVEL OUTSIDE OF THE [place] IN LAST 30 DAYS: No - HPI Notes: Patient presents with bilateral lower quadrant pain that slightly worse on the left. She states she did have constipation as well yesterday. No problems with urination. She states she is not concerned about sexually transmitted disease. She has had no significant vaginal discharge. She states it is time for her menstrual cycle but this pain feels different. She states she ate a normal supper last night but had no appetite for breakfast this morning. The pain is constant and mild to moderate. Is crampy. It radiates across both sides of her abdomen. Is worse with movement and better with rest. She did go to an urgent care prior to coming here. She was referred here for possible appendicitis e valuation. - Related Data Allergies/Adverse Reactions: azithromycin Allergy (Verified 01/02/19 09:31) adhesive Adverse Reaction (Verified 01/02/19 09:31) oxycodone [From Percocet] Adverse Reaction (Verified 01/02/19 09:31) Past Medical History - General Information source: Patient - Social History Smoking Status: Never Smoker Frequency of alcohol use: None Drug Abuse: None Family History: Reviewed & Not Pertinent - Past Medical History Cardiac Medical History: Denies: Hx Coronary Artery Disease, Hx Heart Attack, Hx Hypertension Pulmonary Medical History: Denies: Hx Asthma, Hx Bronchitis, Hx COPD, Hx Pneumonia Neurological Medical History: Denies: Hx Cerebrovascular Accident, Hx Seizures Renal/ Medical History: Denies: Hx Peritoneal Dialysis Musculoskeletal Medical History: Denies Hx Arthritis Past Surgical History: Reports: Hx Orthopedic Surgery - right hand x5 - Immunizations Hx Diphtheria, Pertussis, Tetanus Vaccination: Yes Review of Systems - Review of Systems Constitutional: denies: Chills, Fever Cardiovascular: denies: Chest pain, Palpitations Respiratory: denies: Cough, Short of breath -: Yes All other systems reviewed and negative Physical Exam - Vital signs Vitals: Temp Pulse Resp BP Pulse Ox 99.4 F 94 18 127/72 H 99 12/26/19 10:26 12/26/19 10:26 12/26/19 10:26 12/26/19 10:12/26/19 10:26 Interpretation: Normal - General General appearance: Appears well, Alert - HEENT Head: Normocephalic, Atraumatic Eyes: Normal Pupils: PERRL - Respiratory Respiratory status: No respiratory distress Chest status: Nontender Breath sounds: Normal Chest palpation: Normal - Cardiovascular Rhythm: Regular Heart sounds: Normal auscultation Murmur: No - Abdominal Inspection: Normal Distension: No distension Bowel sounds: Normal Tenderness: Tender - Mild bilateral lower quadrants. No: Guarding, Rebound Organomegaly: No organomegaly - Back Back: Normal, Nontender - Extremities General upper extremity: Normal inspection, Nontender, Normal color, Normal ROM, Normal temperature General lower extremity: Normal inspection, Nontender, Normal color, Normal ROM, Normal temperature, Normal weight bearing. No: Halina's sign - Neurological Neuro grossly intact: Yes Cognition: Normal Orientation: AAOx4 Tricia Coma Scale Eye Opening: Spontaneous [place] Coma Scale Verbal: Oriented Tricia Coma Scale Motor: Obeys Commands Tricia Coma Scale Total: 15 Speech: Normal Motor strength normal: LUE, RUE, LLE, RLE Sensory: Normal - Psychological Associated symptoms: Normal affect, Normal mood - Skin Skin Temperature: Warm Skin Moisture: Dry Skin Color: Normal Course - Re-evaluation Re-evalutation: 12/26/19 13:53 Patient presents with lower pelvic pain. No evidence of urinary tract infection. She is not . She states she is not concerned about a sexually transmitted disease. CT of the abdomen is unremarkable for any acute process. The appendix is not seen however there are no inflammatory changes suggesting appendicitis. The white count is only minimally elevated. On repeat abdominal exam at approximately 1:45 PM she has significantly less pain on exam. She deftly does not have a surgical abdomen by exam at this time. The most pr udent thing to do at this time seems to be to discharge the patient home with precautions that if her symptoms worsen she should return. I did discuss with the patient what her course would most likely be if this was an early appendicitis or diverticulitis that was not observed on the CT scan. - Vital Signs Vital signs: Temp Pulse Resp BP Pulse Ox 99.4 F 94 18 127/72 H 99 12/26/19 10:26 12/26/19 10:26 12/26/19 10:26 12/26/19 10:12/26/19 10:26 - Laboratory Result Diagrams: 12/26/19 11:09 12/26/19 11:09 Laboratory results interpreted by me: 12/26/19 12/26/19 11:09 11:44 WBC 10.8 H Lymph % (Auto) 7.5 L Absolute Neuts (auto) 9.4 H Seg Neutrophils % 87.2 H Urine Blood SMALL H - Diagnostic Test Radiology reviewed: Image reviewed, Reports reviewed Discharge - Discharge Clinical Impression: Abdominal pain Qualifiers: Abdominal location: lower abdomen, unspecified Qualified Code(s): R10.30 - Lower abdominal pain, unspecified Condition: Stable Disposition: HOME, SELF-CARE Instructions: Abdominal Pain ([facility]) Forms: Return to Work Referrals: [facility] [Provider Group] - Follow up as needed
[2019-12-26 15:40] VITALS: BP 115/73
== END 2019-12-26 14:37 | disposition home or self-care (01) ==
LOC: ER 10:21
DX: R10.31 Right lower quadrant pain (principal); R10.32 Left lower quadrant pain; R50.9 Fever, unspecified; K59.00 Constipation, unspecified; Z88.8 Allergy status to other drugs, medicaments and biological substances
CPT/HCPCS: 99285; 96360; 96361; 36415; 85025; 81025; 80053; 81001; 74177; J7030